=== PATIENT | male | born 1985 | race Caucasian/White ===

== ENCOUNTER 2021-09-09 16:00 | Emergency (ER) | payer SELFPAY ==
[~2021-09-09] VITALS: Ht 177.8 cm; Wt 100.0 kg
[2021-09-09] MEDS ORDERED: KETOROLAC 60MG/2ML VIAL IM ONE (18:45)
[2021-09-09] MEDS ORDERED: HYDROCODONE/ACETAMINOPHEN 5/325MG TABLET PO ONE (18:45)
[2021-09-09] MEDS ORDERED: IBUP-2028 MT (19:17)
[2021-09-09] MEDS ORDERED: TOPUD PO (19:18)
[2021-09-09 19:35] VITALS: BP 135/70
== END 2021-09-09 19:35 | disposition home or self-care (01) ==
LOC: ER 16:00
DX: S52.352A Displaced comminuted fracture of shaft of radius, left arm, initial encounter for closed fracture (principal); I10 Essential (primary) hypertension; W11.XXXA Fall on and from ladder, initial encounter; Y93.89 Activity, other specified; Y92.9 Unspecified place or not applicable
CPT/HCPCS: 29125; 72110; 73110; 96372; 99283; J1885

== ENCOUNTER 2021-09-14 13:04 | Emergency (ER) | payer SELFPAY ==
[~2021-09-14] VITALS: Ht 172.7 cm; Wt 105.0 kg
[~2021-09-14 13:04] MED LIST: IBUP-2028 MT; TOPUD PO
[2021-09-14 13:10] VITALS: BP 181/101
== END 2021-09-14 14:51 | disposition home or self-care (01) ==
LOC: ER 13:04
DX: S52.592A Other fractures of lower end of left radius, initial encounter for closed fracture (principal); I10 Essential (primary) hypertension; X58.XXXA Exposure to other specified factors, initial encounter; Y93.9 Activity, unspecified; Y92.9 Unspecified place or not applicable
CPT/HCPCS: 99281